=== PATIENT | male | born 1990 | race Caucasian/White ===

== ENCOUNTER 2016-07-31 09:08 | Inpatient (IN) | payer OTHER ==
[~2016-07-31] VITALS: Ht 185.4 cm; Wt 114.8 kg
[~2016-07-31 09:08] MED LIST: IBUP200T48 PO
[2016-07-31 09:15] VITALS: BP 151/91; PULSE 108; RESP 16; O2SAT 100
--- NOTE | 2016-07-31 10:23 | ED.REPORT ---
HPI-Extremity Problem Upper Date of Service July 31, 2016 ED Provider: Asher Mayes MD Pt is a 26 y.o. male who presents to the ED c/o redness and pain to his left elbow onset yesterday. Pt reports associated swelling, pain, decreased ROM, fever (subjective), chills, and nausea. He claims that the pain woke him up several times throughout the night. He denies injury to the area. He denies prior surgery to his left elbow. 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 Nursing Notes Stated Complaint: SWOLLEN LEFT ELBOW, PAIN Chief Complaint: Extremity Trauma Nursing Notes Reviewed: Yes Allergies: Coded Allergies: No Known Allergies (Unverified Allergy, Unknown, 07/31/16) Uncoded Allergies: Grass and tree pollen (Allergy, Mild, Itchiness, watery eyes, 07/31/16) Scheduled Ascorbic Acid (Vitamin C) 1,000 Mg Tab.chew 1,000 MG PO BID Bupropion ER (Wellbutrin SR) 150 Mg Tablet.er 150 MG PO BID Cetirizine HCl (24Hour Allergy) 10 Mg Tablet 10 MG PO HS Melatonin (Melatonin) 10 Mg Tablet 10 MG PO HS Scheduled PRN Acetaminophen (Acetaminophen) 500 Mg Tablet 500-1,000 MG PO Q6H PRN PRN For Pain Albuterol HFA (Proair HFA) 8.5 Gm Hfa.aer.ad 2 PUFFS INHALATION Q4H PRN PRN For Shortness of Breath Ibuprofen (Ibuprofen) 200 Mg Capsule 200-400 MG PO BID PRN PRN For Pain General Time Seen by MD: 10:21 Chief Complaint Elbow injury left Hx Obtained From: Patient Arrived By: Walk-in Onset Occurred: Yesterday Symptom Duration: Since onset Location: : Elbow left Quality: Painful Severity: Current: Severe Similar Sx Previous: No Past Medical History Past Medical History Denies Past Surgical History Denies Social History Alcohol Use: "Social" Ambulatory Status Independent Review of Systems Decreased ROM of left elbow Musculoskeletal: Reports: Joint pain (Left elbow), Joint swelling (Left elbow) Skin: Reports Rash (Left elbow) Complete sys rev & neg: except as marked. Physical Exam Initial Vital Signs Vital Signs (First) Date Time Temp Pulse Resp B/P Pulse Ox O2 Delivery O2 Flow Rate FiO2 07/31/16 09:15 37.5 108 16 151/91 100 Room Air Initial VS: Reviewed Head / Eyes: Atraumatic, Normocephalic, PERRL Abdomen / GI: No distention Lower Extremities: Vascular intact, Neuro intact Neurologic: Alert, Oriented, Nonfocal Psychiatric: Mood/affect normal, Behavior normal, Normal thought content General/Constitutional: Awake, Alert, No acute distress, Well appearing, Well developed, Well hydrated, Well nourished, Not toxic appearing Appearance / Presentation: Positive: Obese Respiratory / Chest: Atraumatic, Breath sounds NL, Breath sounds = bilat, No respiratory distress Cardiovascular: Heart rate NL, Regular rhythm, Heart sounds NL, Cap refill not delayed, Peripheral circulation NL Left Elbow: Positive: Erythema present (8x8cm), Swelling olec bursa... (With mild fluctuance), Swelling present..., Tenderness present..., Warmth present, Negative: ROM reduced... No proximal extending erythema or warmth Interpretation & Diagnostics Lab Results Interpretation Result Diagram: 08/01/16 0625 08/01/16 0625 Test 07/31/16 12:05 Neutrophils (%) (Auto) 81.2% (40-74) Lymphocytes (%) (Auto) 9.7% (14-46) Monocytes (%) (Auto) 8.5% (4-12) Eosinophils (%) (Auto) 0.2% (0-5) Basophils (%) (Auto) 0.2% (0-3) Lactic Acid Level 1.4mmol/L (0.4-2.0) Total Bilirubin 0.7mg/dL (0.0-1.2) Direct Bilirubin < 0.2mg/dL (0.0-0.3) Aspartate Amino Transf (AST/SGOT) 26U/L (0-50) Alanine Aminotransferase (ALT/SGPT) 83U/L (0-44) Alkaline Phosphatase 57U/L (25-150) Total Protein 7.1g/dL (6.4-8.4) Albumin 4.0g/dL (3.4-5.0) X-Ray Interpretation Xray Interpretation: IMPRESSION: No acute fractures or dislocations. Dictated by: Constantino Mcclain M.D. on 07/31/2016 at 11:28 Approved by: Constantino Mcclain M.D. on 07/31/2016 at 11:29 Study Performed: PROCEDURE: X-RAY LEFT ELBOW COMPLETE, MINIMUM THREE VIEWS ([id number]) X-Ray Ordered: Elbow left Procedures PROCEDURE: Left olecranon bursitis @1201 Informed consent provided Consent from patient Time-out performed Hand hygiene observed Stand sterile technique Area cleansed with chlorhexidine 17g needle - Lidocaine 1% 1.5 inch 18g inserted into left olecranon bursa. 1-2ml of slightly cloudy yellowish fluid obtained. Will send to lab, may not be enough to run tests Patient tolerated procedure well, no complications. Re-Eval/Medical Decision Med Decision/Clinical Course Pt is a 26 y.o. male who presents to the ED c/o redness and pain to his left elbow onset yesterday. Pt reports associated swelling, pain, decreased ROM, fever (subjective), chills, and nausea. He claims that the pain woke him up several times throughout the night. He denies injury to the area. He denies prior surgery to his left elbow. 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 Here in the emergency department the patient is febrile with otherwise stable vital signs and nontoxic in appearance. He has palpable left-sided olecranon bursitis with market overlying erythema and warmth. Given concerns for overlying cellulitis I discussed with orthopedic surgery Dr. Farrar who recommended aspiration of the olecranon bursa despite overlying erythema/possible cellulitis due to concern for septic arthritis. The procedure was performed as documented above though only a small amount of fluid was obtained. Laboratory analysis of this fluid revealed a normal Gram stain and no crystals were present. There was not enough fluid for cell count or culture. The patient was treated with Toradol, IV fluids and blood cultures were obtained. Laboratory study revealed leukocytosis and a normal metabolic panel with elevated ESR and CRP. My initial plan was for outpatient management however patient remained febrile and developed right naris. Therefore, he was admitted to the medicine service and consultation with orthopedic surgery. Per my discussion with Dr. Farrar he was started on IV Ancef though he may need to have these antibiotics further broadened. He was transferred in stable condition. Re-Evaluation/Progress : Time of Eval: 13:47 Re-Evaluation/Progress Note: Pt rechecked. Pt's fever in not reducible. Discussed need for admit and IV abx. Pt understands and agrees with plan. Consultation #1: Referral / Consult Name: Rajesh Farrar MD Consulted With: Orthopedic Call Returned at: 11:40 Note: Consulted with Dr. Farrar regarding pt, they recommend the bursa is tapped. 2g Rocephin in ED and discharge on Bactrim and Keflex Consultation #2: Referral / Consult Name: Jed Turcios MD Consulted With: Hospitalist Call Returned at: 14:40 Christian Education Director: Accepts admit Note: Discussed pt condition and consult with Dr. Farrar, accepts admit. Discharge & Departure Impression: Primary Impression: Septic bursitis of elbow Laterality: left Qualified Code: M71.122 - Other infective bursitis, left elbow Additional Impressions: Left elbow pain Cellulitis Site of cellulitis: extremity Site of cellulitis of extremity: upper extremity Laterality: left Qualified Code: L03.114 - Cellulitis of left upper limb Fever and chills Leukocytosis Leukocytosis type: unspecified Qualified Code: D72.829 - Elevated white blood cell count, unspecified Disposition: ADMITTED TO HOSPITAL Discharge Condition All VS Reviewed: Yes Condition: Improved Additional Instructions: Thank you for seeking care at the emergency room. It is difficult for us to make definitive diagnoses in the ED but we believe that you are experiencing an infected olecranon bursa. Our primary goal today in the ED was to evaluate you for any life-threatening conditions. Your evaluation was reassuring. You will be discharged with a prescription for antibiotics and pain medications , please take as directed. Please call first thing next week to follow-up with the orthopedic surgeons. Please elevate your arm and use Damaso bandage as directed. You should return to the ED immediately if you develop increasing swelling, redness, warmth, pain,* fevers, vomiting, cough, shortness of breath, chest pain , lightheadedness, weakness or any other concerning signs or symptoms. Thank you for letting us partake in your care today. You have been prescribed a narcotic for pain relief. These drugs are usually combined with acetaminophen (Tylenol#3, Percocet, Darvocet, Anexsia, Vicodin) or aspirin (Empirin#3, Percodan, Synalogs-DC) for increased effect. Narcotics act on the central nervous system to reduce pain; they also impair mental alertness and physical abilities. We advise you not to drink alcohol, drive a car, or operate dangerous equipment when you are taking these drugs. You can lessen stomach irritation from your medicine by taking it with meals or a full glass of water. Common side effects of narcotics are: Nausea and vomiting , heartburn, constipation, dizziness, sleepiness, and mood changes. If you have bothersome side effects or symptoms of an allergic reaction (itching, hives, rash), stop taking your medicine and call your doctor or the emergency room right away. Please keep your narcotic medicine well out of the reach of children. Referrals: Eduardo Sharp MD (PCP) Rajesh Farrar MD Attestation Portions of this note were transcribed by Lucille Mena. IDr. Mayes personally performed the history, physical exam and medical decision-making; I reviewed and confirmed the accuracy of the information in the transcribed note. Signed by: Shiva Dixon, 07/31/16 and 1441. copies to: Eduardo Sharp MD; Rajesh Farrar MD, Beck O MD July 31, 2016 10:23 LUCILLE MENA July 31, 2016 11:31 Rajesh Farrar MD Attestation Portions of this note were transcribed by Lucille Mena. Dr. Gerber Alegre personally performed the history, physical exam and medical decision-making; I reviewed and confirmed the accuracy of the information in the transcribed note. Signed by: Shiva Dixon, 07/31/16 and 1441. copies to: Eduardo Sharp MD; Rajesh Farrar MD, Beck O MD July 31, 2016 10:23 LUCILLE MENA July 31, 2016 11:31
--- NOTE | 2016-07-31 11:30 | DRSVH ---
PROCEDURE: X-RAY LEFT ELBOW COMPLETE, MINIMUM THREE VIEWS ([id number]) INDICATIONS: swelling and pain TECHNIQUE: 3 views of the elbow were acquired. COMPARISON: None. FINDINGS: Bones: No fractures or dislocations. No suspicious bony lesions. Soft tissues: No elbow joint effusion. No suspicious soft tissue calcifications. IMPRESSION: No acute fractures or dislocations. Dictated by: Constantino Mcclain M.D. on 07/31/2016 at 11:28 Approved by: Constantino Mcclain M.D. on 07/31/2016 at 11:29
[2016-07-31] MEDS ORDERED: cefTRIAXone Inj 2,000 MG in Dextrose 5% Minibag Plus 50 ML IV ONE (11:50)
[2016-07-31] MEDS ORDERED: SULF1TAB7 PO (11:53)
[2016-07-31] MEDS ORDERED: HYDR-4003 PO (11:53)
[2016-07-31] MEDS ORDERED: CEPH-512 PO (11:53)
[2016-07-31 12:25] LABS: BASOPHILS % (AUTO) 0.2 % (0-3); EOSINOPHILS % (AUTO) 0.2 % (0-5); MONOCYTES % (AUTO) 8.5 % (4-12); Mean Corpuscular Hemoglobin 31.5 pg (27.0-35.0); Mean Corpuscular Volume 91.9 fL (81-100); NEUTROPHILS % (AUTO) 81.2 % (40-74); Platelet Count 239 bil/L (150-400)
[2016-07-31] MEDS ORDERED: Ketorolac 15 mg/mL Inj IVPUSH ONE (12:40)
[2016-07-31] MEDS ORDERED: 0.9% Sodium Chloride 1,000 ML IV ONE (12:40)
[2016-07-31 13:23] LABS: ERYTHROCYTE SEDIMENTATION RATE 8 mm/hr (0-15)
[2016-07-31 13:44] VITALS: BP 115/58; PULSE 106; O2SAT 96
[2016-07-31] MEDS ORDERED: Alum-Mag Hydrox-Simeth 30 mL Suspension PO PRN ×2 (13:45→14:50)
[2016-07-31] MEDS ORDERED: Ondansetron 2 mg/mL 2 mL Inj IVPUSH PRN (13:45)
[2016-07-31] MEDS ORDERED: ASCO100089 PO (13:54)
[2016-07-31] MEDS ORDERED: MELA10TA2 PO (13:54)
[2016-07-31] MEDS ORDERED: FEXO180T85 PO (13:54)
[2016-07-31] MEDS ORDERED: ACET-171 PO (13:54)
[2016-07-31] MEDS ORDERED: BUPR150T8 PO (13:54)
[2016-07-31] MEDS ORDERED: ALBU8.5H2 INHALATION (13:55)
[2016-07-31] MEDS ORDERED: IBUP200C PO (13:59)
[2016-07-31] MEDS ORDERED: CETI-343 PO (14:38)
--- NOTE | 2016-07-31 14:46 | PCM.HPMED ---
Subjective Date of Service July 31, 2016 Primary Provider: Admitting Physician: Primary Care Physician: Eduardo Sharp MD Attending Physician: Chief Complaint: Left elbow pain History of Present Illness: Patient is a 26-year-old male with past medical history of Asthma came to the hospital complaining of left elbow pain, 6 out of 10, sharp, nonradiating, started yesterday, partially alleviated by pain medications, exacerbated by movements and palpitation, associated with swelling and decreased motion, fever , chills, nausea. Patient was diagnosed with septic left olecranon bursitis. ED physician asked medicine to admit the patient to the hospital for IV fluids, IV antibiotics, pain management. In emergency department patient received IV ceftriaxone, IV fluids. He has leukocytosis and fever and tachycardia. Review of Systems: REVIEW OF SYSTEMS: GENERAL: No weight loss, + malaise, + fevers., SEE HPI HEENT: Negative for frequent or significant headaches, No changes in hearing or vision, no nose bleeds or other nasal problems NECK: Negative for lumps, goiter, pain and significant neck swelling RESPIRATORY: Negative for cough, wheezing or shortness of breath. CARDIOVASCULAR: Negative for chest pain, leg swelling or palpitations. GI: Negative for abdominal discomfort, blood in stools or black stools or change in bowel habits : No history of dysuria, frequency or incontinence. SKIN: Negative for lesions, rash, and itching. NEURO: No history of headaches, syncope, paralysis, seizures or tremors All other reviewed and negative other than HPI. Allergies Coded Allergies: No Known Allergies (Unverified Allergy, Unknown, 07/31/16) Uncoded Allergies: Grass and tree pollen (Allergy, Mild, Itchiness, watery eyes, 07/31/16) PMH Asthma Surgical History none Social History Hx Alcohol Use: Yes ("occasionally") Hx Substance Use: No Exam Vital Signs Vital Sign - Last Date Time Temp Pulse Resp B/P Pulse Ox O2 Delivery O2 Flow Rate FiO2 07/31/16 13:44 38.3 106 115/58 96 Room Air 07/31/16 09:15 16 Exam PHYSICAL EXAM: GENERAL: Alert, not in distress, cooperative HEAD: atraumatic, normocephalic, no bruises. EYES: CLAIRE, EOMI, anicteric, able to fully open and close eyelids SKIN: Skin color normal, turgor normal/decreased. No visible rashes or lesions. EAR, NOSE, MOUTH, THROAT: Lips, oral mucosa, tongue gums, oropharynx are moist , pink, no lesions. Ears normal appearance, no lesions. NECK: no jugulovenous distention, no carotid bruits, carotid pulse normal contour, No carotid bruit, supple, no enlarged lymph nodes appreciated; ROM normal. RESPIRATORY: Lungs clear to auscultation. Good diaphragmatic excursion. Normal percussion sound. CARDIAC: normal S1 and S2; no rubs, murmurs, or gallops; regular rate and rhythm ABDOMEN: Abdomen soft, non-tender. BS normal. No masses or organomegaly. MUSCULOSKELETAL: Erythema and edema around left olecranon bursa, ROM in the left elbow is limited, muscles are not tender EXTREMITIES: No pitting edema in LE, no deformities, clubbing or skin discoloration. NEURO: Alert, oriented X 3, Sensation grossly intact., Cranial nerves II-XII intact, Grossly normal motor function. PULSES: 2+ radial, 2+ carotid Lab and Diagnostics Result Diagram: 07/31/16 1205 07/31/16 1205 X-Rays, CTs and MRIs X-ray of left elbow IMPRESSION: No acute fractures or dislocations. Assessment & Plan Patient is a 26-year-old male with no significant past medical history. Patient came to the hospital complaining of left elbow pain, 6 out of 10, sharp , nonradiating, started yesterday, partially alleviated by pain medications, exacerbated by movements and palpitation, associated with swelling and decreased motion, fever, chills, nausea. Patient was diagnosed with septic left olecranon bursitis. It was aspirated in ED. She was started on IV and ceftriaxone and IV fluids. Sepsis, acute olecranon bursitis - Stable, not under control - Left elbow x-ray - personally reviewed- no fractures identified Plan - Continue with IV ceftriaxone, add IV Vancomycin - Low up blood cultures, aspirate culture - Continue with IV fluids Jed Turcios MD July 31, 2016 14:45
[2016-07-31] MEDS ORDERED: Polyethylene Glycol (PEG) 17 Gm Powder PO PRN (14:50)
[2016-07-31] MEDS ORDERED: Albuterol HFA 60 Puff 8 Gm Inhaler INHALATION PRN (15:30)
[2016-07-31] MEDS: buPROPion SR 150 mg ER12 Tablet PO SCH ×2 (15:30→22:38)
--- NOTE | 2016-07-31 15:30 | NUR ---
Admit Pt admitted to floor. A&Ox3. Pt able to stand and walk. Limited ROM in left arm due to pain. Left arm resting on a pillow. Pt on RA. Slightly tachycardic at 110-112. Fever has reduced to 37.4. Hospitalist notified and pt started on IV fluids. Bed locked in low position and call light within reach. Will continue to monitor.
[2016-07-31] MEDS ORDERED: Albuterol 2.5 mg/3 mL Inhalation Solution NEB PRN (15:40)
[2016-07-31 15:42] VITALS: BP 113/67; PULSE 110; RESP 24; O2SAT 97
[2016-07-31] MEDS: 0.9% Sodium Chloride 1,000 ML IV SCH (16:19)
[2016-07-31] MEDS: Vancomycin Dose per Pharmacist XX SCH (17:05)
--- NOTE | 2016-07-31 17:42 | PCM.PHAPRO ---
Progress Date of Service: July 31, 2016 Requesting Provider: Jed Turcios MD Left elbow pain Vancomycin per pharmacy vanco trough 15-20 Trough 08/01 @ 1700 vancomycin 1500mg IV x1 then 1250mg IV q8h Todd Arroyo [facility] July 31, 2016 17:42
[2016-07-31] MEDS: HYDROmorphone 0.5 mg/0.5 mL iSecure Syringe IVPUSH PRN ×2 (17:50→21:53)
[2016-07-31] MEDS ORDERED: Vancomycin Inj 1,500 MG in 0.9% Sodium Chloride 500 ML IV ONE (18:00)
[2016-07-31 18:45] VITALS: BP 121/63; PULSE 116; RESP 24; O2SAT 98
--- NOTE | 2016-07-31 18:45 | NUR ---
Fever Pt reported that he was feeling feverish. Redness/swelling has extended past marked area on left elbow. Pt's temp is 39.3, 114bpm. Other vitals are stable. Hospitalist paged. Pt given APAP, per MD orders. Hospitalist will come see pt. Awaiting further orders.
[2016-07-31 20:00] VITALS: BP 145/71; PULSE 123; RESP 17; O2SAT 100
[2016-07-31 20:18] LABS: Bilirubin, Direct < 0.2 mg/dL (0.0-0.3)
[2016-07-31 20:34] VITALS: PULSE 108
[2016-08-01] VITALS (15 sets, daily range): BP systolic 118–156; BP diastolic 68–98; PULSE 92–110; RESP 12–22; O2SAT 95–98
--- NOTE | 2016-08-01 01:44 | CONS ---
[address] [address] CONSULTATION REPORT PATIENT: ANTONINO HUNT : 1990 MR#: [id number] ADMIT: 07/31/2016 JOB ID: [id number] DATE OF SERVICE: 07/31/2016 CHIEF COMPLAINT: This is a 26-year-old male who developed left elbow olecranon bursa swelling and some associated cellulitis and pain. He denies any particular injury and denies any IV drug use or having been bit by any insects. 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 The patient presented to the emergency department today and was admitted for IV antibiotics. Pain and swelling started yesterday. The patient states his pain is moderate in nature. The emergency department did aspirate the bursa. He had leukocytosis as well as fever and tachycardia. PAST MEDICAL HISTORY: Denies any surgery. Positive for asthma. No known medication allergies. SOCIAL HISTORY: Has good family support. He occasionally drinks. Does not use any drugs. REVIEW OF SYSTEMS: HEENT: No blurring of vision. No decreased hearing. Respiratory: No shortness of breath. Cardiovascular: No chest pain. GI: No nausea, vomiting. : No dysuria. Musculoskeletal: Pain in the left elbow. Neuro: No headache or dizziness. Hematologic: No easy bleeding or bruising. PHYSICAL EXAMINATION: 185 cm, 114 kg, male. Initial temperature was 38.4, and is now 39.3, it is fluctuating, has gone up and down. The patient is tachycardic, pulse of 106-108, respirations 24, blood pressure stable, 121/63, pulse ox of 98. Left elbow has pain and swelling over the olecranon, associated cellulitis around the olecranon bursa. No ascending lymphangitis. The patient had been prepped with the blue ChloraPrep pad with some residual blue tenting of the skin, which is not actually bruising but just from the blue tinted ChloraPrep. The patient is able to move the fingers. Peripheral pulses are full. Motor and sensory testing intact. Has pain with elbow range of motion. DIAGNOSTIC STUDIES: Elbow x-rays: No elbow joint effusion. Some swelling around the bursa. White count 12,900, hematocrit 40.8, hemoglobin 14.0, platelet count 239,000, with 81.2% PMNs. Sodium 135, potassium 4.0, chloride 100, CO2 of 22, BUN 16, creatinine 1.23, random glucose at 1.38. Lactic acid at 1.4. ALT elevated at 83, alk phos 57, AST is 26, total protein 7.1, albumin 4.0. IMPRESSION: Left olecranon septic bursitis. The patient is currently on IV vancomycin. I have contacted Dr. Freedman from Infectious Disease, and he suggested IV vancomycin to be continued until we know if he has any particular organism growing. We will keep the patient n.p.o. after midnight just in case the bursitis worsens rather than improves. If it does worsen, then he would require formal drainage in the operating room, otherwise we will treat him with IV antibiotics. Blood cultures are pending. Gram stain showed no polys and no organisms, and no crystals were seen. Will recheck the patient sometime tomorrow for clinical examination.
[2016-08-01] MEDS: Vancomycin Inj 1,250 MG in 0.9% Sodium Chloride 250 ML IV SCH ×3 (01:52→17:42)
[2016-08-01] MEDS: 0.9% Sodium Chloride 1,000 ML IV SCH ×4 (02:02→17:41)
--- NOTE | 2016-08-01 05:20 | PCM.PNMED ---
Subjective Date of Service August 01, 2016 Subjective This is a 26 yo male with elbow bursttiis. On Ceftriaxone and Vancomycin. Orthopedics has him nothing by mouth for possible I&D today. He says his pain as well as range of motion have significantly improved . He recalls having fevers/chills overnight. Denies current nausea, headache Exam Vital Signs Vital Sign - Last Date Time Temp Pulse Resp B/P Pulse Ox O2 Delivery O2 Flow Rate FiO2 08/01/16 02:07 37.2 07/31/16 20:34 108 07/31/16 20:00 17 145/71 100 Room Air Intake and Output 07/31/16 07/31/16 08/01/16 Cumulative From/Thru 15:00 23:00 07:00 07/31/16 09:15 - 07/31/16 18:00 Intake Total 1050 ml 557 ml 1607 ml Output Total 1200 ml 1200 ml Balance 1050 ml -643 ml 407 ml Intake Oral 360 ml 360 ml IV Total 1050 ml 197 ml 1247 ml Output Urine Total 1200 ml 1200 ml Exam General: No accute distress HEENT: NCAT Heart: RRR, no s3/s4 Lungs: CTA, no crackles or wheezes Skin: Left elbow looks purple in the olecranon process, light , faded pink discoloration around it. MSK: Pt is able to move the arm around w/o pain. Neuro: No focal deficits, no altered sensation or numbness, tingling in affected arm Psych:Neg for anxiety Ext: Neg for edema IVs and Medications IV Fluids Normal saline 125 mL per hour Medications Reviewed: Medications were reviewed in detail Lab and Diagnostics Laboratory Tests Test 07/31/16 19:30 08/01/16 06:25 Hold Bishop Top Tube Received (Received) White Blood Count 12.5th/mm3 (3.8-10.1) Red Blood Count 4.19mil/mm3 (4.40-5.80) Hemoglobin 13.2g/dL (13.8-17.2) Hematocrit 39.2% (41.0-50.0) Mean Corpuscular Volume 93.6fL (81-100) Mean Corpuscular Hemoglobin 31.5pg (27.0-35.0) Mean Corpuscular Hemoglobin Concent 33.7% (32.0-37.0) Red Cell Distribution Width 13.1% (12.3-15.4) Platelet Count 218bil/L (150-400) Erythrocyte Sedimentation Rate 31mm/hr (0-15) Sodium Level 141mEq/L (134-144) Potassium Level 4.1mEq/L (3.5-5.2) Chloride Level 107mEq/L (97-108) Carbon Dioxide Level 21mmol/L (18-29) Blood Urea Nitrogen 10mg/dL (6-20) Creatinine 1.05mg/dL (0.76-1.27) Estimat Glomerular Filtration Rate 91mL/min (>59) Glucose Level 120mg/dL (60-99) Calcium Level 8.4mg/dL (8.5-10.1) C-Reactive Protein 11.9mg/dL (0.0-0.5) Microbiology 07/31/16 Blood Culture, Received Pending 07/31/16 Gram Stain - Final, Complete 07/31/16 Fluid Crystals - Final, Complete 08/01/16 MRSA (PCR) - Final, Complete Result Diagram: 07/31/16 1205 07/31/16 1205 X-Rays, CTs and MRIs X-ray of left elbow IMPRESSION: No acute fractures or dislocations. Assessment & Plan Patient is a 26-year-old male with no significant past medical history. Patient came to the hospital complaining of left elbow pain, 6 out of 10, sharp , nonradiating, started yesterday, partially alleviated by pain medications, exacerbated by movements and palpitation, associated with swelling and decreased motion, fever, chills, nausea. Patient was diagnosed with septic left olecranon bursitis. It was aspirated in ED. She was started on IV and ceftriaxone and IV fluids. Sepsis secondary to olecranon bursitis, present on admission: Left elbow x-ray - personally reviewed- revealed no fractures identified - Continue with IV ceftriaxone, IV Vancomycin - blood cultures are NGTD, aspirate culture showed no crystals - Continue with IV fluids, pt is npo for possible I&D -- Called and reviewed case with Dr. Rajesh Elliott and she plans to visit with him today prior to deciding whether to do the I&D are not, he will be Nothing by mouth until she decides -- changed pain meds to morphine IV, oxycodone by mouth from dilaudid IV -- reviewed lab work on 08/01 am, positive leukocytosis and elevated ESR (31), CRP (11.9) -- Dr. Freedman was contacted by Dr. Farrar. He recommends continuing vanc until cultures clear. -- We will consider formal ID consult and Dr. Freedman returns to the hospital Fevers: Patient reports Overnight fevers -- We will continue to monitor, although is aware -- We will order further blood cultures if that is enough concern Nausea: Resolved Allergies: continue home meds Insomnia: continue home meds Asthma: stable Disposition: Discharge to home in 2 days if his infection continues to resolve/ improve. Pain Evaluation: Adequate Pain Control VTE Prophylaxis: Other (Pt is ambulatory) Time spent 25 min Lesly Meeks DO August 01, 2016 05:20
--- NOTE | 2016-08-01 05:59 | NUR ---
Vitals Assumed pt care at 1900,at 2000, pt febrile at 39.2, tachy at 123, Bp at 145/71 stat blood cultures done, results pending, spoke with Dr. Martinez with order for one time Motrin, given, placed pt on white sugar syrup operator, sinus tachy low 100's throughout night, at 2040 temp down to 37.7, at 2100 Dr. Farrar rounding at bedside, with order for MRSA swab, sent to lab, results pending, cleaned left elbow with chloraprep, dressed with 2x2 gauze and secured with kerlix per Dr. Farrar, site has no drainage throughout night, at 0200 pt afebrile at 37.2, at 0545, low grade temp noted at 37.5, given APAP,awaiting results, call light in reach at all times.
[2016-08-01 06:34] LABS: Mean Corpuscular Hemoglobin 31.5 pg (27.0-35.0); Mean Corpuscular Volume 93.6 fL (81-100)
[2016-08-01] MEDS ORDERED: fentaNYL-PF 50 mCg/mL 2 mL Inj ONE (06:39)
[2016-08-01] MEDS ORDERED: Propofol 10,000 mCg/mL 20 mL Inj ONE ×2 (06:39→06:42)
[2016-08-01] MEDS: buPROPion SR 150 mg ER12 Tablet PO SCH ×2 (09:19→20:30)
[2016-08-01] MEDS: cefTRIAXone Inj 2,000 MG in Dextrose 5% Minibag Plus 50 ML IV SCH (09:43)
[2016-08-01] MEDS: Vancomycin Dose per Pharmacist XX SCH (09:59)
--- NOTE | 2016-08-01 14:25 | NUR ---
SURGERY PLAN/PAIN/ANTIBIOTICS P-Patient has apparent infection left elbow, states "pain is we// controlled" and receiving antibiotics for infection I- IV antibiotics given per orders, MSRA nasal swab negative, Oxycodone given to control pain, consent printed and awaiting MD to fill out and explain to patient. Patient running slight temp of 37.8 at 1230, HR 104. E- Planned I & D this afternoon, Dr Farrar. Patient remain NPO, denies pain at this time. Monitoring I/O, VSS, blood cultures pending. Addendum: 08/01/16 at 1826 by MONE ESPARZA RN MXRB-H-Ekiqjagx 11.9, WBC 12.5, temp 37.4 and 37.8 NEURO-LOCX4, independent to bathroom CVS-SR tachy 90-110 through shift denies chest pain. PLUM-RA, slight shortness of breath with activity -NPO since midnight, hyperactive BT GI-4000ml output! SKIN- Left elbow edema, redness and tender. Damaso wrap over 4x4 and curlex + Ice at times. PAIN- Oxycodone 5mg (x1)for left elbow pain IV-NS 125 + Antibiotics PLAN-I&D of elbow today continue antibiotics.
--- NOTE | 2016-08-01 14:28 | NUR ---
Social Work-screening: Data:EMR Reviewed. Pt is a 26 y/o male who was admitted on 07/31/16 for cellulitis per H&P. Pt's insurance is [employer] and [employer] and PCP is Eduardo Sharp Md. EMR reviewed.Pt's readmission score is 0. SW met with pt and Alicia at bedside, SW role explained. Pt is alert and oriented x3. Pt resides at home with his where he remains independent with ADLs. Pt has no HH or SNF history. SW discussed DPOA/ advanced directive, pt has not completed this, SW provided copy of the forms. Pt and have questions around billing and insurance notification,etc. has called insurance and SW explained that hospital also notifies insurance that pt has been admitted. All questions answered. SW provided phone number and plan on white board in room. to provide transport home at discharge. No anticipated discharge needs. SW will continue to follow if needs arise. Assessment:Pt who is independent at baseline. Plan:Pt to discharge home when medically stable via POV. No anticipated discharge needs. SW will continue to follow if needs arise. ALTA Ziegler
[2016-08-01] MEDS ORDERED: Vancomycin Serum Trough XX ONE (17:00)
--- NOTE | 2016-08-01 19:27 | NUR ---
Pt off floor Pt picked up by Kim PAIGE to head to surgery at 1922, Tamica followed to waiting area. Pt able to ambulate with steady gait, SBA by RN to hold fluids. Informed RN that consent will still need to be signed and pt and have questions that need to be answered by Dr. Farrar prior to consent and surgery. would like to stay in room with patient tonight, security informed and brought bed.
[2016-08-01] MEDS ORDERED: Labetalol 5 mg/mL 4 mL Inj IV PRN (20:00)
[2016-08-01] MEDS ORDERED: Phenylephrine 10,000 mCg/mL Inj IVPUSH PRN (20:00)
[2016-08-01] MEDS ORDERED: MetoCLOpramide 5 mg/mL 2 mL Inj IVPUSH PRN (20:00)
[2016-08-01] MEDS ORDERED: Lactated Ringer's 500 ML IV PRN (20:00)
[2016-08-01] MEDS ORDERED: EPHEDrine Sulfate 50 mg/mL Inj IVPUSH PRN (20:00)
[2016-08-01] MEDS ORDERED: Lactated Ringer's 1,000 ML IV SCH (20:00)
[2016-08-01] MEDS ORDERED: Atropine 0.4 mg/mL Inj IVPUSH PRN (20:00)
[2016-08-01] MEDS ORDERED: Ondansetron 2 mg/mL 2 mL Inj IVPUSH PRN (20:00)
--- NOTE | 2016-08-01 20:00 | PCM.HPANE ---
Patient Data Surgeon Admitting Provider:Jed Turcios MD Attending Provider:Rajesh Farrar MD Primary Care Physician:Eduardo Sharp MD Other Provider: Reason for Visit Cellulitis,Bursitis Ht/WT & BMI Height (Feet): 6 Height (Inches): 1.00 Weight (Kilograms): 114.800 Body Mass Index 33.54 Allergies Coded Allergies: No Known Allergies (Unverified Allergy, Unknown, 07/31/16) Uncoded Allergies: Grass and tree pollen (Allergy, Mild, Itchiness, watery eyes, 07/31/16) Past Anesthesia History Anesthesia History: Denies:: Anesthesia Reactions Diabetes History Hx Diabetes?: No MRSA MRSA: No Medications Reported Medications Cetirizine HCl (24Hour Allergy)10 Mg Uovvtg70 Mg PO HS 07/31/16 Ibuprofen 200 Mg Tndedhd414-199 Mg PO BID PRN For Pain 07/31/16 Albuterol HFA (Proair HFA)8.5 Gm Hfa.aer.ad2 Puffs INHALATION Q4H PRN For Shortness of Breath #1 INHALER 07/31/16 Acetaminophen 500 Mg Peizlu064-0,000 Mg PO Q6H PRN For Pain 07/31/16 Ascorbic Acid (Vitamin C)1,000 Mg Tab.chew1,000 Mg PO BID Ref 0 07/31/16 Bupropion ER (Wellbutrin SR)150 Mg Tablet.er150 Mg PO BID Ref 0 07/31/16 Melatonin 10 Mg Wisagb80 Mg PO HS 07/31/16 Discontinued Reported Medications Fexofenadine (Rosie Allergy)180 Mg Ciztxu417 Mg PO HS Ref 0 07/31/16 IBUPROFEN-Expunged Drug, Do Not Renew! 200 Mg Qtmuep364-928 Mg PO Q6H PRN For Pain 09/06/12 Discontinued Scripts Cephalexin (Keflex)500 Mg Xhzkyuv689 Mg PO QID 7 Days Prov:Asher Mayes MD 07/31/16 Sulfamethoxazole/Trimeth 800-160 mg (Bactrim DS)1 Each Tablet1 Tablet PO BID 7 Days Prov:Asher Mayes MD 07/31/16 Hydrocodone-Acetaminophen 5-325 mg 1 Each Tablet1 Tablet PO Q4H PRN For Pain 3 Days Prov:Asher Mayes MD 07/31/16 History History of ENT Problems?: Yes HEENT History: Positive for:: Sinus Problem Denies:: Cataracts Dysphagia Glaucoma Denture Type: None Teeth Condition: Within Normal Limits Hx of Heart Problems?: Yes Cardiovascular History: Positive for:: Hypertension (Not on medications. Diet controlled.) Denies:: Cardiac Surgery Chest Pain Congestive Heart Failure Heart Murmur Irregular Heartbeat Pacemaker Thrombophlebitis Hx of Respiratory Problem?: Yes Respiratory History: Positive for:: Asthma Dyspnea Denies:: COPD Chest Surgery Emphysema Hemoptysis Pneumonia Tuberculosis Hx Neurologic Problems?: Yes Neurological History: Positive for:: Dizziness Headaches Denies:: Alzheimer's Disease CVA Dementia Parkinson's Disease Seizures Hx of GI Problems?: No Hx of Problems?: No Genitourinary History: Denies:: HX of Hemodialysis Kidney Stones Urinary Tract Infection HX of Peritoneal Dialysis: No Male Hx: Denies:: Prostate Problems Scrotal Mass Testicular Surgery Hx Musculoskeletal Problems?: No Musculoskeletal History: Denies:: Back Injury Joint Replacement Musculoskeletal Trauma Hx of Psycho/Social Problems?: Yes Psycho Social History: Positive for:: Anxiety (Wellbutrin) Hx Depression Denies:: Bipolar Disorder Suicide Attempt Hx Surgeries?: Yes ([place] teeth extraction) Hx Any Other Health Problems?: Yes Other History: Denies:: Cancer Hospitalization Thyroid Disease History Blood Transfusions: Positive for:: Accept Blood Products? Denies:: Blood Transfuse Reaction Blood Transfusions Hx Diabetes: No Hx Alcohol Use: Yes (Social)Hx Substance Use: No Smoking Status: Never Smoker Have You Smoked inLast 12 mo: No Stop/Bang Treated for Sleep Apnea?: No Do You Have a CPAP Machine?: No S-Snoring: Do You Snore Loudly: Yes T-Tired: feel tired, fatigued: No O-Obsered: Observed not breath: No P-Blood Pressure: treated: No B- Body Mass Index > 35 kg/m2: No A- Age over 50: No N- Neck Large Circumference: No G- Gender Male: Yes CHRISTINA Total Score: 2 Risk Assessment Category Category 1A: Patient has history of documented sleep apnea, and HAS NOT received any narcotic, sedative or anesthesia administration during this stay. Category 1B: Patient has history of documented sleep apnea, and HAS received any narcotic , sedative or anesthesia administration during this stay Category 2: Patient has SUSPECTED Obstructive Sleep Apnea, and HAS received any narcotic , sedative or anesthesia administration during this stay. Category 3: Patient has SUSPECTED Obstructive Sleep Apnea and HAS NOT received narcotic, sedative or anesthesia administration during this stay. Category 4: Outpatient in Procedural Areas with known sleep apnea or who screen positive for High Risk via the STOP/BANG questionnaire. Exam Exam Vital Signs Vital Signs Date Time Temp Pulse Resp B/P Pulse Ox O2 Delivery O2 Flow Rate FiO2 08/01/16 16:31 38.1 110 18 133/77 95 Room Air 08/01/16 15:33 38.6 08/01/16 12:50 37.8 104 16 134/84 95 Room Air General Appearance: Alert, Oriented X3 HEENT/AIRWAY: MP 1, Neck Movement (FROM) Lungs: Clear to Auscultation, Clear to Percussion Heart: Exam Unremarkable, Regular Rate/Rhythm Meds/Labs/Diagnostics Admission Meds Current Medications Melatonin 10 mg 10 mg HS PO Last administered on 07/31/16 21:51; Start at 21:00 Ceftriaxone Sodium 2000 mg/ Dextrose/Water 50 ml @ 100 mls/hr Q24H IV Last administered on 08/01/16 09:43; Start 08/01/16 at 09:00 Vancomycin HCl 1500 mg/Sodium Chloride 500 ml @ 333.333 mls/hr OT ONCE IV Last administered on 07/31/16 17:54; Start 07/31/16 at 18:00; Stop 07/31/16 at 19:29; Status DC Vancomycin HCl/ Sodium Chloride (Vancocin Inj/ Normal Saline) 250 ml @ 166.667 mls/hr Q8H IV Last administered on 08/01/16 09:59; Start 08/01/16 at 02:00 Ibuprofen (Motrin) 600 mg ONCE ONCE PO Last administered on 07/31/16 20:26; Start 07/31/16 at 20:05; Stop 07/31/16 at 20:06; Status DC Loratadine (Claritin) 10 mg HS PO Last administered on 07/31/16 21:52; Start 07/31/16 at 21:00 Labs Test 07/31/16 12:05 07/31/16 19:30 08/01/16 06:25 08/01/16 16:12 Neutrophils (%) (Auto) 81.2% (40-74) Lymphocytes (%) (Auto) 9.7% (14-46) Monocytes (%) (Auto) 8.5% (4-12) Eosinophils (%) (Auto) 0.2% (0-5) Basophils (%) (Auto) 0.2% (0-3) Lactic Acid Level 1.4mmol/L (0.4-2.0) Total Bilirubin 0.7mg/dL (0.0-1.2) Direct Bilirubin < 0.2mg/dL (0.0-0.3) Aspartate Amino Transf (AST/SGOT) 26U/L (0-50) Alanine Aminotransferase (ALT/SGPT) 83U/L (0-44) Alkaline Phosphatase 57U/L (25-150) Total Protein 7.1g/dL (6.4-8.4) Albumin 4.0g/dL (3.4-5.0) Hold Bishop Top Tube Received (Received) White Blood Count 12.5th/mm3 (3.8-10.1) Red Blood Count 4.19mil/mm3 (4.40-5.80) Hemoglobin 13.2g/dL (13.8-17.2) Hematocrit 39.2% (41.0-50.0) Mean Corpuscular Volume 93.6fL (81-100) Mean Corpuscular Hemoglobin 31.5pg (27.0-35.0) Mean Corpuscular Hemoglobin Concent 33.7% (32.0-37.0) Red Cell Distribution Width 13.1% (12.3-15.4) Platelet Count 218bil/L (150-400) Erythrocyte Sedimentation Rate 31mm/hr (0-15) Sodium Level 141mEq/L (134-144) Potassium Level 4.1mEq/L (3.5-5.2) Chloride Level 107mEq/L (97-108) Carbon Dioxide Level 21mmol/L (18-29) Blood Urea Nitrogen 10mg/dL (6-20) Creatinine 1.05mg/dL (0.76-1.27) Estimat Glomerular Filtration Rate 91mL/min (>59) Glucose Level 120mg/dL (60-99) Calcium Level 8.4mg/dL (8.5-10.1) C-Reactive Protein 11.9mg/dL (0.0-0.5) Vancomycin Level Trough 12.3mcg/mL Plan Impression Patient chart reviewed, patient interviewed and anesthestic plan with risks, benefits, and alternatives discussed, and informed consent obtained. ASA Physical Status: ASA2 Mod Systemic Disease Anesthetic Plan: MAC (with GA as backup) Bene/Risks/Altern/Consents: Yes HP Complete Prior to Induction: Yes Navin Merchant MD August 01, 2016 17:39
[2016-08-01] MEDS ORDERED: Bupivacaine-MPF 0.5% 30 mL Inj INFILTRATE ONE (20:07)
[2016-08-01] MEDS ORDERED: Gentamicin 40 mg/mL 2 mL Inj IRRIGATION ONE (20:08)
--- NOTE | 2016-08-01 20:38 | PCM.ANEP1 ---
Post Anesthesia PACU Phase 1 Assessment Vital Signs Vital Signs Date Time Temp Pulse Resp B/P Pulse Ox O2 Delivery O2 Flow Rate FiO2 08/01/16 20:00 104 08/01/16 16:31 38.1 110 18 133/77 95 Room Air 08/01/16 15:33 38.6 08/01/16 12:50 37.8 104 16 134/84 95 Room Air Anesthetic Administered: MAC Level of Alertness: Awake, talking EDMONDSON's with Equal Strength: No Pain: Yes Pain Scale Score: 6 Nausea or Vomiting: No CV Function & Hydration Stable: No Airway Device: None Oxygen Delivery: Room Air Lungs: Clear to Auscultation, Clear to Percussion PACU Phase 2 Assessment Complications: No Follow up Care: No Patient Instructions Provided: N/A Comments See anesth record for PACU VS. PACU VSS Navin Merchant MD August 01, 2016 20:38
[2016-08-01] MEDS: HYDROmorphone 1 mg/mL Inj IVPUSH PRN ×2 (20:46→20:52)
[2016-08-01] MEDS: fentaNYL-PF 50 mCg/mL 2 mL Inj IVPUSH PRN ×2 (21:01→21:18)
--- NOTE | 2016-08-01 21:12 | NUR ---
Return to floor Pt returned from OR at approx. 2111, brought by Arlene PAIGE and snow technician. Pt A&O, 5/ pain changed to 8/10 pain with transfer. Arlene administered last OR dose of pain medication. VSS, 1L NC O2 left on at patients request. Pillows arranged under arm for comfort. Pt requested water and broth, then ate crackers and muffin. No nausea reported. at bedside, bed brought for her.
--- NOTE | 2016-08-01 21:55 | OP ---
[address] [address] OPERATIVE REPORT PATIENT: ANTONINO HUNT : 1990 MR#: [id number] ADMIT: 07/31/2016 JOB ID: [id number] DATE OF SURGERY: PREOPERATIVE DIAGNOSIS(ES): 1. Left elbow cellulitis. 2. Septic olecranon bursitis. POSTOPERATIVE DIAGNOSIS(ES): 1. Left elbow cellulitis. 2. Septic olecranon bursitis. PROCEDURE: 1. Incision and drainage and irrigation of infected left olecranon bursa. 2. Wound packed open with bulky dressing and a splint applied. CPT code 82049. SURGEON: Dr. Rajesh Farrar. FISHER DIP NET: None. ANESTHESIA: IV sedation with IV MAC and local anesthetic. SPECIMEN TO PATHOLOGY: Small amount of aspirated bloody bursal fluid. SPONGE AND NEEDLE COUNT: Correct. COMPLICATIONS: None. INDICATIONS: This is a 26-year-old male with persistent pain, swelling and erythema around the left elbow and olecranon bursa. The patient had a prior olecranon bursa aspirated for just a few drops of fluid and that was originally sent for culture. He continued to have increased cellulitis and erythema expanding beyond the previously marked margins despite being on IV vancomycin. The patient denies any trauma to that elbow. The cellulitis persisted despite being on bed rest and IV antibiotics and arm elevation. Decision was, therefore, made to take him to the operating room today for a small incision, irrigation of the bursa and send additional cultures to Pathology. PROCEDURE IN DETAIL: Under IV MAC sedation with anesthesia, I did prep the left arm and drape it in a sterile fashion. Tourniquet was applied, but it ended up not being utilized. A small amount of Marcaine plain was placed in the proximal portion of the olecranon bursa. Initial needle aspiration did not yield much of any fluid. The olecranon bursa was boggy. Less than 1 cm wound was fashioned proximally in the olecranon bursa and there was some fluid that was removed, was blood-tinged and no evidence of any purulent material. This was sent to Bacteriology for aerobic and anaerobic cultures. Cell count with differential was not performed since the fluid was blood-tinged more like serosanguineous fluid. The bursa was noted to be from the subcutaneous tissue for dimensions of 6 cm in width and 7 cm in length. Utilizing a mosquito hemostat clamp, the bursa was probed proximal, distal, medial and lateral. Any septae in the bursa were released. The wound was thoroughly irrigated with antibiotic solution with gentamicin. It was subsequently packed open. Estimated blood loss was less than 5 mL. This was packed open with 1/4-inch gauze moistened with IV gentamicin solution. Dry, sterile, bulky dressing was applied as well as a fiberglass volar splint. Posterior splint to keep the patient from moving his elbow and decrease irritation around the elbow. The patient was taken to recovery room in stable condition. Sponge and needle count correct. No complications. PLAN: I will plan to remove the patient's packing and change his dressing on Monday, August 03, 2016. Infectious Disease will also be consulted. The patient is aware that there is always the potential he may require additional surgery and that his wound will have to heal in by secondary intention. The wound itself is only about 1 cm or slightly less than 1 cm in length and should heal in by secondary intention.
[2016-08-02] VITALS (7 sets, daily range): BP systolic 112–130; BP diastolic 66–84; PULSE 97–106; RESP 16–18; O2SAT 93–99
[2016-08-02] MEDS: Vancomycin Inj 1,250 MG in 0.9% Sodium Chloride 250 ML IV SCH ×3 (02:01→22:20)
--- NOTE | 2016-08-02 06:05 | NUR ---
IV Upon return from OR, attempted to flush IV on Right forearm infiltrated, red, painful, puffy. Removed IV. 2 attempts by Phillip PAIGE failed. Mary called in to attempt IV, successfully. Then 1 hour later, that IV infiltrated. IV in hand still working and normal saline changed from 125ml/hr to 60ml/hr higher rate was causing discomfort. IV vanco will be run at 60ml/hr rather than 166ml/hr in the hopes that we can keep this IV running. After ambulating to restroom, pt got IV tubing caught on pants and almost completely pulled out IV. This nurse was able to feed it back into the vein and it appears to be running smoothly without any signs of infiltration. Will continue to monitor and called IV therapy attempt to put another IV in further up on arm.
--- NOTE | 2016-08-02 06:08 | NUR ---
Pain Morphine helping only temporarily. This nurse chose to give 1mg q2 for the first 2 doses to help maintain pain control. 0200 pt requested more medication, oxycodone given. Pt felt inflammation in wrapped arm, cap refill and mobility, sensation checked in fingers. 0230 pt requested more medication Tylenol given to allow optimal coverage with morphine and oxycodone timing. Pt continues to report 6-8/10 with any slight movement of arm. Will continue to monitor pain level and coverage.
--- NOTE | 2016-08-02 06:09 | NUR ---
Temp Pt had temperature 38.6 on prior shift per report. No temp during night shift supervisor until 0440 with 37.8 after ambulating to restroom. Tylenol being given due to pain, will continue to administer to help with temp as well.
[2016-08-02 06:33] LABS: Mean Corpuscular Hemoglobin 31.2 pg (27.0-35.0)
--- NOTE | 2016-08-02 07:58 | PCM.PNORTH ---
Subjective Date of Service: August 02, 2016 Visit Information: Reason for Visit Cellulitis,Bursitis Surgery/Surgery Date Post-Op Day # 1 Date of Admission: July 31, 2016 at 14:57 Hospital Day # Subjective Patient states he has been having a lot of pain and they have had difficulty controlling it. Patient states he is on a regiment of Hydrocodone, Morphone and Tylenol (he's actually on oxycodone). He states this regiment has kept his pain level tolerable but states he is still having the pain. I explained to him that he has had surgery and that pain is expected. He states he has been keeping his hand and elbow elevated and that is comfortable for him. He denies numbness, tingling or increasing pain Postop General: No Shortness of Breath, No Chest Pain Pain Management: PO, IV Push Objective Exam Objective Patient laying in bed with elbow and hand elevated. Vital Signs and I/O Vital Sign - Last Date Time Temp Pulse Resp B/P Pulse Ox O2 Delivery O2 Flow Rate FiO2 08/02/16 04:40 37.8 99 18 112/66 93 Nasal Cannula 1.00 Intake and Output 08/01/16 08/01/16 08/02/16 Cumulative From/Thru 15:00 23:00 07:00 07/31/16 09:15 - 08/02/16 06:40 Intake Total 2650 ml 1247 ml 8204 ml Output Total 4000 ml 2400 ml 9700 ml Balance -1350 ml -1153 ml -1496 ml Intake Oral 600 ml 1710 ml IV Total 2650 ml 647 ml 6494 ml Output Urine Total 4000 ml 2400 ml 9700 ml # Voids 5 5 Lab & Micro Results Laboratory Tests Test 08/01/16 16:12 08/02/16 05:11 08/02/16 06:15 Vancomycin Level Trough 12.3mcg/mL White Blood Count 12.2th/mm3 (3.8-10.1) Red Blood Count 4.01mil/mm3 (4.40-5.80) Hemoglobin 12.5g/dL (13.8-17.2) Hematocrit 37.7% (41.0-50.0) Mean Corpuscular Volume 94.0fL (81-100) Mean Corpuscular Hemoglobin 31.2pg (27.0-35.0) Mean Corpuscular Hemoglobin Concent 33.2% (32.0-37.0) Red Cell Distribution Width 13.0% (12.3-15.4) Platelet Count 209bil/L (150-400) Erythrocyte Sedimentation Rate 41mm/hr (0-15) Sodium Level 139mEq/L (134-144) Potassium Level 4.2mEq/L (3.5-5.2) Chloride Level 102mEq/L (97-108) Carbon Dioxide Level 22mmol/L (18-29) Blood Urea Nitrogen 7mg/dL (6-20) Creatinine 1.12mg/dL (0.76-1.27) Estimat Glomerular Filtration Rate 85mL/min (>59) Glucose Level 166mg/dL (60-99) Calcium Level 8.6mg/dL (8.5-10.1) C-Reactive Protein 13.2mg/dL (0.0-0.5) Microbiology 07/31/16 Blood Culture - Preliminary, Resulted NO GROWTH AFTER 24 HOURS 07/31/16 Gram Stain - Final, Complete 07/31/16 Fluid Crystals - Final, Complete 08/01/16 MRSA (PCR) - Final, Complete 08/01/16 Gram Stain, Received Pending 08/01/16 Culture & Sensitivity, Received Pending 08/01/16 Anaerobic Culture, Received Pending Result Diagram: 08/02/16 0511 08/02/16 0615 General Appearance: Alert, Oriented X3, Cooperative, No Acute Distress Extremities: Distal Pulses Palpable, Warm Postop Sensory Motor: Distal Motor Intact, Movement in Fingers (Able to make a full fist, extend fingers and abd/adduct fingers.), Distal Sensation Intact, NVI Distally SURGICAL WOUND : Wound Location/Description Perioperative dressings in place, clean and dry. Incision General Appearance: No Direct Observation Wound Drainage Type: Packing to be removed by Dr. Farrar POD#2 Assessment & Plan Impression POD#1 1. Incision and drainage and irrigation of infected left olecranon bursa. 2. Wound packed open with bulky dressing and a splint applied. Problems: Plan Weightbearing: Patient should remain nonweightbearing with his upper left extremity. Wound care: Dressings shoulder remain intact until POD#[address] Farrar will remove the dressings and the packing and reassess the wound. Analgesia: Oral pain management preferred. Encourage patient that pain is normal and expected. Discharge plan: Discharge home in 1-2 days. Follow-up plan: Dependent on reassessment of wound POD#2. Dr. Farrar may need to do an additional I&D or closure. VTE Prophylaxis: Other (Pt is ambulatory) Christa Olivares PA-C August 02, 2016 07:57
[2016-08-02] MEDS: 0.9% Sodium Chloride 1,000 ML IV SCH ×2 (08:10→16:10)
[2016-08-02] MEDS ORDERED: Ketorolac 15 mg/mL Inj IVPUSH PRN (08:10)
[2016-08-02] MEDS: Vancomycin Dose per Pharmacist XX SCH (08:30)
[2016-08-02] MEDS: buPROPion SR 150 mg ER12 Tablet PO SCH ×2 (08:39→21:13)
[2016-08-02] MEDS: Heparin 5,000 Unit/mL Inj SUBQ SCH ×2 (08:44→17:28)
--- NOTE | 2016-08-02 11:01 | NUR ---
Social Work-readiness for discharge: Data:EMR reviewed. Pt is on day 2 of hospitalization for cellulitis per H&P. Pt is not medically stable anticipate 1-2 more days. Pt is on IV abx at this time, but anticipate pt to transition to oral abx at discharge. Pt has been up independent in his room. Pt's to provide transport home. No anticipated discharge needs. SW will continue to follow if needs arise. Assessment:Pt who is independent at baseline. Plan:Pt to discharge home when medically stable via POV. No anticipated discharge needs. SW will continue to follow if needs arise. ALTA Ziegler
[2016-08-02] MEDS: cefTRIAXone Inj 2,000 MG in Dextrose 5% Minibag Plus 50 ML IV SCH (12:42)
[2016-08-02] MEDS ORDERED: Vancomycin Serum Trough XX ONE ×2 (15:00→17:00)
--- NOTE | 2016-08-02 15:13 | CONS ---
[address] [address] CONSULTATION REPORT PATIENT: ANTONINO HUNT : 1990 MR#: [id number] ADMIT: 07/31/2016 JOB ID: [id number] DATE OF SERVICE: 08/02/2016 INFECTIOUS DISEASE CONSULTATION: I thank Dr. Rajesh Elliott for this consult. REASON FOR CONSULT: Left septic olecranon bursitis. HISTORY OF PRESENT ILLNESS: The patient is a 26-year-old gentleman who reports generally good health. 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 On or about July 30, three days ago, the patient noticed the abrupt onset of warmth, tenderness and swelling and pain around his left elbow. This rapidly progressed and was eventually associated with fevers, chills, nausea, generalized malaise, and generalized dysphoria. These worsening symptoms involving his left elbow led him to the emergency department and he was admitted on July 31. The initial diagnosis was probable septic bursitis given his high fever and leukocytosis and so he underwent a bursal aspiration which yielded only 1 or 2 cc of material which was cloudy and was sent for appropriate cultures and stains. He was then started on ceftriaxone and Dr. Farrar contacted me whilst I was on vacation in [place] and I recommended the addition of vancomycin which was subsequently done. Since that time, the patient has gone to the operating room for a more formal drainage procedure which was done by Dr. Rajesh Farrar once again. She took him to the OR because there was increasing cellulitis and erythema despite IV ceftriaxone and vanco. In the operating room, she found the olecranon bursa was quite boggy. There was no evidence of purulence, however, and the fluid that she did obtain was sent for appropriate cultures though she could not do cell counts because it was so thick. Packing was done and the wound was carefully wrapped in a large postoperative bulky dressing which extends most of the way up and down the patient's entire left arm. The patient reports that since his debriding procedure his pain is, if anything, decreased though it is still obviously quite painful. He has not had additional significant fevers or chills and in general is probably somewhat better today. No headache, nausea, vomiting or pulmonary symptomatology today. No infection in any other body site and no history ever of MRSA or any soft tissue infection. He is not known to be a diabetic nor is he known to have HIV or any immunosuppressive illness. PAST MEDICAL HISTORY: 1. Obesity with BMI 33. 2. Reactive airway disease. 3. Asperger's or autism spectrum disorder. 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 He is and has small children at home. He does not smoke cigarettes and drinks only occasionally. He and his and children reside in the local area and neither his nor is children have had any unusual illnesses. FAMILY HISTORY: Positive for coronary artery disease and diabetes. REVIEW OF SYSTEMS: The patient denies any significant ongoing headache. He has no visual complaints. No sore throat. No trouble swallowing. No cough, chest pain, nausea, vomiting, diarrhea, dysuria, urgency, or frequency. Aside from the pain in his left elbow area, he does not have pain in any other joints and no swelling in his lower extremities. No neurologic complaints. The remainder of the review of systems is negative. PHYSICAL EXAMINATION: Reveals a gentleman who was quite febrile when he came in, was spiking temperatures around 38.5 for the first 36 hours or so. His current temperature is lower at 37.7, pulse 105, respiratory rate 16, blood pressure 129/77. He is saturating well on room air and in no acute distress. Examination of the head reveals no trauma. Mental status is completely normal. Oral cavity negative. No thrush or hairy leukoplakia. Neck is supple and without adenopathy. Lungs are clear. Cardiac tones regular rate and rhythm without murmur. Abdomen somewhat obese, soft, nontender. No organomegaly. No Wu catheter is present. No suprapubic fullness. No palpable lymph nodes. Lower extremities completely benign. No erythema or cellulitis or synovial swelling noted. He has good peripheral pulses. His left arm, as I mentioned, is wrapped in a postop dressing which goes from almost the shoulder to the wrist and the orthopedist has hopefully written on there not to remove the dressing except in the OR as there is a packed wound underneath so we did not mess with it. The patient is neurologically intact without focal abnormalities or neuropathy. LABORATORIES: Include a white count that was 13,000 two days ago. It is now down to 12,000, not much difference. Differential is relatively benign, a little bit of a left shift. ESR 41. CRP rather strikingly elevated at 13.2. Glucose 166 and all his blood sugars have been between 120 and 166. His creatinine 1.12. LFTs notable for an ALT of 83, otherwise normal. Albumin normal. Micro: Blood cultures x2 sets are negative. Synovial fluid negative for crystals. Gram stain showed no polys or organisms. Culture is negative at 2-1/2 days. MRSA screen of the nares is negative. The additional fluid that was taken last night has rare polys and no organism. IMAGING: Includes the initial x-ray which shows no abnormalities of the left elbow. IMPRESSION: This is a 26-year-old gentleman without apparent significant past medical history though he does seem to have some sustained hyperglycemia here. He is admitted with a rather rapidly progressive left septic olecranon bursitis. Unfortunately we do not have a positive culture yet but one still could be forthcoming. This is likely infectious rather than a non infectious olecranon bursitis as the patient had fevers, chills, generalized malaise and leukocytosis. Dr. Farrar thought his overall evaluation was consistent with sepsis, and for that reason, he has been started on aggressive therapy with vanc and ceftriaxone. Most of these turntable engineer to be due to Staph, strep or even occasionally gram negatives can be involved. RECOMMENDATIONS: 1. I continue with vanc and ceftriaxone for the time being. 2. We await the pending cultures. 3. Will check an HIV and we understand that a hemoglobin A1c is already pending looking for any evidence of previously unknown immunosuppression. 4. As the patient improves, will pick an oral home therapy for this infection though linezolid will not be a choice given that he is on Wellbutrin generic for anxiety. Thank you very much for allowing me to see this patient in consult.
--- NOTE | 2016-08-02 16:07 | NUR ---
Social Work Note - Readiness for Discharge: D/A: The Pt is a 26 y/o male that is now on day 2 of hospitalization for cellulitis, as per EMR. SW received call from Pt's regarding insurance and resource concerns and questions. SW met with the Pt and his to discuss these concerns and questions. Pt reported that his insurance [employer] needs to receive a pre-authorization to be admitted but unfortunately the office was closed due to the holiday. Pt informed SW that she had notified [facility] about his admission. Pt and also inquired about any services in the community that may of be some help during his recovery such as [facility], SW explored [facility] services and also encouraged the Pt and to contact the Pt's Human Resource department to see if he is eligible for any type of assistance. SW t/c to [employer] for assistance, informed SW that clinicals have been faxed to [facility]. Pt and updated. also informed SW that she was in contact with [facility] and may be eligible for some services and will seeking additional assistance at their agency. Pt and deny any other needs at this time, SW to follow if needs arise. P: Pt likely to discharge home when medically stable with family providing POV transportation. Pt and deny any other needs at this time, SW to follow if needs arise. [facility] Nurse ALTA Ziegler
--- NOTE | 2016-08-02 19:10 | NUR ---
Pain Pt did much better w/ pain managed on toradol. 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
[2016-08-02] MEDS ORDERED: Vancomycin Inj 1,250 MG in 0.9% Sodium Chloride 250 ML IV SCH (21:35)
--- NOTE | 2016-08-02 21:40 | PCM.PNMED ---
Subjective Date of Service August 02, 2016 Subjective Patient is seen and examined. Asking for better pain control. Morphine 1-2 mg Q4HPRN not lasting enough. He says he has fam hx of DM II. On oxygen 2 L, no other concerns Exam Vital Signs Vital Sign - Last Date Time Temp Pulse Resp B/P Pulse Ox O2 Delivery O2 Flow Rate FiO2 08/02/16 04:40 37.8 99 18 112/66 93 Nasal Cannula 1.00 Intake and Output 08/01/16 08/01/16 08/02/16 Cumulative From/Thru 15:00 23:00 07:00 07/31/16 09:15 - 08/01/16 20:40 Intake Total 2650 ml 6957 ml Output Total 4000 ml 7300 ml Balance -1350 ml -343 ml Intake Oral 1110 ml IV Total 2650 ml 5847 ml Output Urine Total 4000 ml 7300 ml # Voids 5 5 Exam General: NAD HEENT: NCAT Heart: RRR, no s3/s4 Lungs: CTA b/l no crackles or wheezes Abd: Soft, NT/ND Legs: No edema MSK: Left Elbow is wrapped in dressings Skin: Warm and dry Neck: Trachea central Neuro no focal deficits Psych negative for anxiety IVs and Medications Medications Reviewed: Medications were reviewed in detail Lab and Diagnostics Result Diagram: 08/01/1662408/01/16 0625 X-Rays, CTs and MRIs X-ray of left elbow IMPRESSION: No acute fractures or dislocations. Assessment & Plan Patient is a 26-year-old male with no significant past medical history. Patient came to the hospital complaining of left elbow pain, 6 out of 10, sharp , nonradiating, started yesterday, partially alleviated by pain medications, exacerbated by movements and palpitation, associated with swelling and decreased motion, fever, chills, nausea. Patient was diagnosed with septic left olecranon bursitis. It was aspirated in ED. She was started on IV and ceftriaxone and IV fluids. Elevated BG, fasting: -- A1C is ordered this a.m. Sepsis secondary to olecranon bursitis, present on admission: Left elbow x-ray - personally reviewed- revealed no fractures identified - Continue with IV ceftriaxone, IV Vancomycin per ID - blood cultures are NGTD, aspirate culture showed no crystals - Patient is status post IND on 08/01. No culture sent as nothing purulent is found. --Increased pain meds : morphine 4 mg Q3HPRN, oxycodone Q4HPRN 5 mg, ketorolac 30 mg Q6HPRN --Dr. Freedman was contacted by by phone. He recommends continuing vanc and ceftriaxone in his consult note --Enoxaparin SQ for DVT Prophylaxis -- HIV test is ordered by ID: Follow the results Fevers: Patient reports Overnight fevers -- We will continue to monitor, although is aware -- We will order further blood cultures if that is enough concern Nausea: Resolved Allergies: continue home meds Insomnia: continue home meds Asthma: stable Disposition: Discharge to home in 2 days if his infection continues to resolve/ improve. Pain Evaluation: Pain not Controlled VTE Prophylaxis: Sub-Q Heparin (Unfractionated), Other (Pt is ambulatory) Time spent 25 min Lesly Meeks DO August 02, 2016 05:12
[2016-08-03] MEDS: Heparin 5,000 Unit/mL Inj SUBQ SCH ×3 (01:12→17:02)
[2016-08-03 01:40] VITALS: BP 131/85; PULSE 95; RESP 18; O2SAT 95
[2016-08-03] MEDS: Vancomycin Inj 1,250 MG in 0.9% Sodium Chloride 250 ML IV SCH ×3 (05:48→21:33)
[2016-08-03 06:00] VITALS: BP 115/64; PULSE 86; RESP 17; O2SAT 97
[2016-08-03 06:12] LABS: Mean Corpuscular Hemoglobin 31.5 pg (27.0-35.0); Mean Corpuscular Volume 94.2 fL (81-100)
--- NOTE | 2016-08-03 06:29 | NUR ---
Shift note uneventful night pain managed well w/Toradol and prn oxycodone up ind anticipating ortho today
[2016-08-03] MEDS: buPROPion SR 150 mg ER12 Tablet PO SCH ×2 (07:50→21:33)
[2016-08-03] MEDS: Vancomycin Dose per Pharmacist XX SCH (08:10)
--- NOTE | 2016-08-03 08:17 | PCM.PNMED ---
Subjective Date of Service August 03, 2016 Subjective Patient is seen and examined. He is asked not to use the oxygen via NC, as he seems to be using it just for comfort. He is encouraged to ambulate and take deep breaths. Pain is better controlled on toradol. Discussed the A1C finding of 5.7, encouraged life style changes. He has no other concerns Exam Vital Signs Vital Sign - Last Date Time Temp Pulse Resp B/P Pulse Ox O2 Delivery O2 Flow Rate FiO2 08/03/16 01:40 37.1 95 18 131/85 95 Room Air 08/02/16 21:58 1.00 Intake and Output 08/02/16 08/02/16 08/03/16 Cumulative From/Thru 15:00 23:00 07:00 07/31/16 09:15 - 08/02/16 16:33 Intake Total 2977 ml 16420 ml Output Total 2300 ml 36835 ml Balance 677 ml -819 ml Intake Oral 2200 ml 3910 ml IV Total 777 ml 7271 ml Output Urine Total 2300 ml 94535 ml # Voids 5 Exam General: NAD HEENT: NCAT Heart: RRR, no s3/s4 Lungs: CTA, no crackles or wheezes Abd: Soft, NT/ND, normal MSK: Good ROM in left shoulder, left hand not swollen, moving fingers ok. Vasc: 2+ radial pulse b/l neuro: No focal deficits, neg for altered sensation Psych : neg for anxiety IVs and Medications Medications Reviewed: Medications were reviewed in detail Lab and Diagnostics Laboratory Tests Test 08/03/16 05:40 08/03/16 13:15 White Blood Count 11.7th/mm3 (3.8-10.1) Red Blood Count 3.97mil/mm3 (4.40-5.80) Hemoglobin 12.5g/dL (13.8-17.2) Hematocrit 37.4% (41.0-50.0) Mean Corpuscular Volume 94.2fL (81-100) Mean Corpuscular Hemoglobin 31.5pg (27.0-35.0) Mean Corpuscular Hemoglobin Concent 33.4% (32.0-37.0) Red Cell Distribution Width 12.7% (12.3-15.4) Platelet Count 212bil/L (150-400) Sodium Level 142mEq/L (134-144) Potassium Level 4.5mEq/L (3.5-5.2) Chloride Level 105mEq/L (97-108) Carbon Dioxide Level 25mmol/L (18-29) Blood Urea Nitrogen 11mg/dL (6-20) Creatinine 1.02mg/dL (0.76-1.27) Estimat Glomerular Filtration Rate 95mL/min (>59) Glucose Level 106mg/dL (60-99) Calcium Level 8.7mg/dL (8.5-10.1) Vancomycin Level Trough 10.5mcg/mL Microbiology 07/31/16 Blood Culture - Preliminary, Resulted No growth at 2 days; culture examined... 07/31/16 Gram Stain - Final, Complete 07/31/16 Fluid Crystals - Final, Complete 08/01/16 MRSA (PCR) - Final, Complete 08/01/16 Gram Stain - Final, Resulted 08/01/16 Culture & Sensitivity - Preliminary, Resulted No growth to date 08/01/16 Anaerobic Culture, Resulted Pending Result Diagram: 08/02/16 0511 08/02/16 0615 X-Rays, CTs and MRIs X-ray of left elbow 07/31/16 IMPRESSION: No acute fractures or dislocations. Assessment & Plan Patient is a 26-year-old male with no significant past medical history. Patient came to the hospital complaining of left elbow pain, 6 out of 10, sharp , nonradiating, started yesterday, partially alleviated by pain medications, exacerbated by movements and palpitation, associated with swelling and decreased motion, fever, chills, nausea. Patient was diagnosed with septic left olecranon bursitis. It was aspirated in ED. He was started on IV and ceftriaxone and IV fluids. He is now POD #2 I&D of left elbow Elevated BG, fasting: Pre-diabetic -- A1C =5.7 -- Recommended Life style changes, PCP is requested to follow up. Sepsis secondary to olecranon bursitis, present on admission: Left elbow x-ray - personally reviewed- revealed no fractures identified - Continue with IV ceftriaxone, IV Vancomycin per ID - admission time blood cultures are NGTD, aspirate culture showed no crystals - Patient is status post I&D on 08/01. cultures so far are NGTD. (Gram stain aspirate showed rare polys) --oxycodone Q4HPRN 5 mg, ketorolac 15 mg Q6HPRN for pain --Enoxaparin SQ for DVT Prophylaxis --HIV test is ordered by ID: Follow the results --Encouraged incentive spirometry Fevers: Patient reports Overnight fevers: Resolved -- We will continue to monitor, although is aware -- We will order further blood cultures if that is enough concern Nausea: Resolved Allergies: continue home meds Insomnia: continue home meds Asthma: stable Disposition: Discharge to home in 1 day on PO clinda 300 mg QID for 7-10 days if his infection continues to resolve/improve. Orhto F/U : "Weightbearing: Nonweightbearing left elbow Follow-up plan: In 2 weeks at [facility] with PA for wound check and at [address] Farrar Pain Management:" Pain Evaluation: Adequate Pain Control VTE Prophylaxis: Sub-Q Heparin (Unfractionated), Other (Pt is ambulatory) Time spent 25 min Lesly Meeks DO August 03, 2016 06:01 Lesly Meeks DO August 03, 2016 06:01
--- NOTE | 2016-08-03 09:08 | PROG NOTE ---
[address] [address] PROGRESS NOTE PATIENT: ANTONINO HUNT : 1990 MR#: [id number] ADMIT: 07/31/2016 JOB ID: [id number] DATE: 08/03/2016 INFECTIOUS DISEASE FOLLOW UP NOTE: REASON FOR FOLLOWUP: Septic olecranon bursitis, left side. INTERVAL HISTORY: Overnight, the patient reports minimal left elbow pain and he has had improved pain control. No fevers, no chills. No sweats. No cough, nausea or vomiting. PHYSICAL EXAMINATION: Reveals an afebrile gentleman, in no acute distress. Temperature 37.1. He has been afebrile now for almost two full days. Pulse 86, respiratory rate 17, blood pressure 115/64, saturating well on room air. He is in no acute distress. His lungs are . Cardiac tones without murmur. Abdomen benign. His left upper extremity is in a large dressing which the surgeon will be changing today. 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 LABORATORIES: Include a white count which is gradually decreasing, now 11,700. His creatinine 1.02. CRP was 13 yesterday. HIV pending. The aspirate of the fluid is negative at this point in terms of culture results and there have been two aspirates, one on the and another one during surgery on the . Both are negative. PCR of the nares negative. IMPRESSION: This is a young gentleman with uncomplicated past medical history except for just now diagnosed pre diabetes. He is admitted with a rapidly progressive left septic olecranon bursitis. We have no positive culture at this point though the likely organisms would be staph or strep RECOMMENDATIONS: 1. I would continue vanc and ceftriaxone. 2. We await the pending cultures. 3. The patient will probably be discharged on oral clindamycin if he has improved sufficiently over the next day or two. The dose there would be 300 4x daily for 7-10 days.
[2016-08-03 09:09] VITALS: PULSE 84
[2016-08-03] MEDS: cefTRIAXone Inj 2,000 MG in Dextrose 5% Minibag Plus 50 ML IV SCH (09:32)
[2016-08-03] MEDS: HYDROcodone-APAP 7.5-325 mg Tablet PO PRN ×2 (09:44→14:42)
[2016-08-03 10:11] VITALS: BP 112/66; PULSE 85; RESP 17; O2SAT 97
--- NOTE | 2016-08-03 11:14 | PCM.PNORTH ---
Subjective Date of Service: August 03, 2016 Visit Information: Reason for Visit Cellulitis,Bursitis Surgery/Surgery Date left elbow olecranon bursa I&D 08/01/2016 Post-Op Day # 2 Date of Admission: July 31, 2016 at 14:57 Hospital Day # Subjective Patient complains of incisional pain. He denies tingling, numbness or paresthesias. Postop General: No Shortness of Breath, No Chest Pain Pain Management: PO, IV Push Objective Exam Objective Patient is seen sitting up in bed. Vital Signs and I/O Vital Sign - Last Date Time Temp Pulse Resp B/P Pulse Ox O2 Delivery O2 Flow Rate FiO2 08/03/16 09:09 84 08/03/16 06:00 37.1 17 115/64 97 Room Air 08/02/16 21:58 1.00 Intake and Output 08/02/16 08/02/16 08/03/16 Cumulative From/Thru 15:00 23:00 07:00 07/31/16 09:15 - 08/03/16 06:22 Intake Total 2977 ml 1940 ml 69918 ml Output Total 2300 ml 4005 ml 26318 ml Balance 677 ml -2065 ml -2884 ml Intake Oral 2200 ml 720 ml 4630 ml IV Total 777 ml 1220 ml 8491 ml Output Urine Total 2300 ml 4005 ml 52508 ml # Voids 5 Lab & Micro Results Laboratory Tests Test 08/03/16 05:40 White Blood Count 11.7th/mm3 (3.8-10.1) Red Blood Count 3.97mil/mm3 (4.40-5.80) Hemoglobin 12.5g/dL (13.8-17.2) Hematocrit 37.4% (41.0-50.0) Mean Corpuscular Volume 94.2fL (81-100) Mean Corpuscular Hemoglobin 31.5pg (27.0-35.0) Mean Corpuscular Hemoglobin Concent 33.4% (32.0-37.0) Red Cell Distribution Width 12.7% (12.3-15.4) Platelet Count 212bil/L (150-400) Sodium Level 142mEq/L (134-144) Potassium Level 4.5mEq/L (3.5-5.2) Chloride Level 105mEq/L (97-108) Carbon Dioxide Level 25mmol/L (18-29) Blood Urea Nitrogen 11mg/dL (6-20) Creatinine 1.02mg/dL (0.76-1.27) Estimat Glomerular Filtration Rate 95mL/min (>59) Glucose Level 106mg/dL (60-99) Calcium Level 8.7mg/dL (8.5-10.1) Microbiology 07/31/16 Blood Culture - Preliminary, Resulted No growth at 2 days; culture examined... 07/31/16 Gram Stain - Final, Complete 07/31/16 Fluid Crystals - Final, Complete 08/01/16 MRSA (PCR) - Final, Complete 08/01/16 Gram Stain - Final, Resulted 08/01/16 Culture & Sensitivity - Preliminary, Resulted No growth to date 08/01/16 Anaerobic Culture, Resulted Pending Result Diagram: 08/03/16 0540 08/03/16 0540 General Appearance: Alert, Oriented X3, Cooperative, No Acute Distress Extremities: Distal Pulses Palpable Postop Sensory Motor: Distal Motor Intact, Movement in Fingers, NVI Distally SURGICAL WOUND : Wound Location/Description Left elbow: surgical dressing is removed. There is mild serous drainage dries on the dressing. No purulence seen. Wound packing is removed. There is no erythema present. Dressing is changed with fluffs, cast padding, long arm posterior splint and elastic bandages. Activity: Ambulating Independently Catheters: None Assessment & Plan Impression POD #1 status post Left elbow olecranon bursa I&D Problems: Plan Weightbearing: Nonweightbearing left elbow Wound care: Dressing is changed by PA today with pressure pad (fluffs), UE is immobilized with long arm splint. Wound cultures are pending. Gram stain show no organisms Patient is instructed to avoid leaning on the elbow, minimize use of the left UE. Discharge plan: Discharge home when medically stable on oral antibiotics We appreciate Dr. Meeks and Dr. Freedman medical care of this patient Discharge instructions: Leave dressing and splint in place. Rest arm on pillows Minimize use of left UE Follow-up plan: In 1 week at [facility] with JOSÉ LUIS for wound check and at [address] Farrar Pain Management: Oxycodone, toradol VTE Prophylaxis: Sub-Q Heparin (Unfractionated), Other (Pt is ambulatory) Resuscitation Status: CPR: Attempt Resuscitation Organ, Arely M PA-C August 03, 2016 11:14 Arely Vilchis PA-C August 03, 2016 11:14
--- NOTE | 2016-08-03 13:05 | NUR ---
Pain Pt c/t prefer toradol for pain management, reports that morphine and norco to not improve pain, but that oxycodone does help. At this time toradol and oxycodone are managing pain well.
[2016-08-03] MEDS ORDERED: Vancomycin Serum Trough XX ONE (13:30)
--- NOTE | 2016-08-03 16:21 | PCM.PHAPRO ---
Progress Left elbow pain VANCOMYCIN DOSING PER PHARMACY Labs: Scr 1.02 WBC 11.7 Trough on 08/03 @ 1330: 10.5 A: Vancomycin trough was drawn after only two doses (after restarting dose last night a few hours after the initial scheduled time) P: Will continue vancomycin 1250 mg IV q8h Will draw additional trough on 08/04 @ 1330 SCr have been ordered for the next two days and will be monitored, thank you Kizzy Eli PharmD August 03, 2016 16:21
[2016-08-03 18:53] VITALS: BP 119/71; PULSE 88; RESP 16; O2SAT 98
[2016-08-03 23:00] VITALS: BP 106/61; PULSE 84; RESP 17; O2SAT 98
[2016-08-04] MEDS: Heparin 5,000 Unit/mL Inj SUBQ SCH ×2 (00:50→08:54)
[2016-08-04 05:31] VITALS: PULSE 94
[2016-08-04] MEDS ORDERED: OXYC5TAB72 PO (05:36)
[2016-08-04] MEDS ORDERED: CLIN-78 PO (05:36)
[2016-08-04] MEDS ORDERED: POLY17PO6 PO (05:36)
[2016-08-04] MEDS ORDERED: LACT1CAP13 PO (05:38)
[2016-08-04] MEDS: Vancomycin Inj 1,250 MG in 0.9% Sodium Chloride 250 ML IV SCH (05:51)
[2016-08-04 06:04] VITALS: BP 125/80; PULSE 92; RESP 18; O2SAT 98
--- NOTE | 2016-08-04 06:06 | NUR ---
Shift note/pain Pain tolerance notably improved medicated w/oxy 5mg x1 the whole night comfortable otherwise uneventful
[2016-08-04 07:15] LABS: Mean Corpuscular Hemoglobin 30.7 pg (27.0-35.0); Mean Corpuscular Volume 92.7 fL (81-100)
[2016-08-04 08:00] VITALS: PULSE 87
[2016-08-04] MEDS: Vancomycin Dose per Pharmacist XX SCH (08:30)
[2016-08-04] MEDS: buPROPion SR 150 mg ER12 Tablet PO SCH (08:54)
[2016-08-04] MEDS: cefTRIAXone Inj 2,000 MG in Dextrose 5% Minibag Plus 50 ML IV SCH (08:56)
[2016-08-04 11:00] VITALS: BP 135/83; PULSE 94; RESP 14; O2SAT 93
--- NOTE | 2016-08-04 11:11 | PCM.PNORTH ---
Subjective Date of Service: Aug 04, 2016 Visit Information: Reason for Visit Cellulitis,Bursitis Surgery/Surgery Date Post-Op Day # 3 Date of Admission: July 31, 2016 at 14:57 Hospital Day # Subjective Patient states he is feeling a lot better and states his pain is well controlled. Denies numbness, tingling or increasing pain. Postop General: No Shortness of Breath, No Chest Pain Pain Management: PO, IV Push Objective Exam Objective Sitting up in bed, extremity elevated on a pillow. Vital Signs and I/O Vital Sign - Last Date Time Temp Pulse Resp B/P Pulse Ox O2 Delivery O2 Flow Rate FiO2 08/04/16 08:00 87 08/04/16 06:04 37.4 18 125/80 98 Room Air 08/02/16 21:58 1.00 Intake and Output 08/03/16 08/03/16 08/04/16 Cumulative From/Thru 15:00 23:00 07:00 07/31/16 09:15 - 08/04/16 06:05 Intake Total 1586 ml 1990 ml 18542 ml Output Total 1400 ml 3100 ml 20576 ml Balance 186 ml -1110 ml -3808 ml Intake Oral 1200 ml 960 ml 6790 ml IV Total 386 ml 1030 ml 9907 ml Output Urine Total 1400 ml 3100 ml 30055 ml # Voids 5 # Bowel Movements 1 1 Lab & Micro Results Laboratory Tests Test 08/03/16 13:15 08/04/16 06:30 08/04/16 07:00 Vancomycin Level Trough 10.5mcg/mL Sodium Level 141mEq/L (134-144) Potassium Level 4.5mEq/L (3.5-5.2) Chloride Level 100mEq/L (97-108) Carbon Dioxide Level 22mmol/L (18-29) Blood Urea Nitrogen 13mg/dL (6-20) Creatinine 1.13mg/dL (0.76-1.27) Estimat Glomerular Filtration Rate 84mL/min (>59) Glucose Level 102mg/dL (60-99) Calcium Level 9.5mg/dL (8.5-10.1) White Blood Count 9.6th/mm3 (3.8-10.1) Red Blood Count 4.37mil/mm3 (4.40-5.80) Hemoglobin 13.4g/dL (13.8-17.2) Hematocrit 40.5% (41.0-50.0) Mean Corpuscular Volume 92.7fL (81-100) Mean Corpuscular Hemoglobin 30.7pg (27.0-35.0) Mean Corpuscular Hemoglobin Concent 33.1% (32.0-37.0) Red Cell Distribution Width 12.5% (12.3-15.4) Platelet Count 273bil/L (150-400) Microbiology 07/31/16 Blood Culture - Preliminary, Resulted No growth at 2 days; culture examined... 07/31/16 Gram Stain - Final, Complete 07/31/16 Fluid Crystals - Final, Complete 08/01/16 MRSA (PCR) - Final, Complete 08/01/16 Gram Stain - Final, Resulted 08/01/16 Culture & Sensitivity - Preliminary, Resulted 08/01/16 Anaerobic Culture - Preliminary, Resulted Result Diagram: 08/04/16 0700 08/04/16 0630 General Appearance: Alert, Oriented X3, Cooperative, No Acute Distress Extremities: Distal Pulses Palpable, Warm, No Compartment Syndrom Noted Postop Sensory Motor: Distal Motor Intact, Movement in Fingers, Distal Sensation Intact SURGICAL WOUND : Wound Location/Description Splint c/d/i Incision General Appearance: No Direct Observation Activity: Ambulating Independently Catheters: None Assessment & Plan Impression POD#3 left olecranon bursa I&D Problems: Plan Weightbearing: Nonweightbearing left elbow Wound care: UE is immobilized with long arm splint and splint and dressing shoulder remain intact. Wound cultures are pending. Gram stain show no organisms Patient is instructed to avoid leaning on the elbow, minimize use of the left UE. Discharge plan: Discharge home when medically stable on oral antibiotics - awaiting medical clearance to discharge however, from an ortho perspective, stable to discharge today. I have placed a prescription for Percocet 5/325 in patient's charge for pain management. I will defer to hospitalist service for antibiotic and DVT prophylaxis. We appreciate Dr. Meeks and Dr. Freedman medical care of this patient Discharge instructions: Leave dressing and splint in place. Rest arm on pillows Minimize use of left UE Follow-up plan: In 1 week at [facility] with JOSÉ LUIS for wound check and at [address] Farrar VTE Prophylaxis: Sub-Q Heparin (Unfractionated), Other (Pt is ambulatory) Resuscitation Status: CPR: Attempt Resuscitation Christa Olivares PA-C Aug 04, 2016 11:11
--- NOTE | 2016-08-04 11:17 | PROG NOTE ---
[address] [address] PROGRESS NOTE PATIENT: ANTONINO HUNT : 1990 MR#: [id number] ADMIT: 07/31/2016 JOB ID: [id number] DATE: 08/04/2016 REASON FOR FOLLOWUP: Left olecranon bursitis, probably septic. INTERVAL HISTORY: Overnight, the patient's original dressing was removed and a new large dressing was placed by Orthopedics. The patient reports that the wound looked great, and when the dressing was briefly removed, there was no more pain, tenderness, or swelling. He is now ready for discharge and denies fevers, chills, sweats, GI, or pulmonary symptoms. PHYSICAL EXAMINATION: Reveals an afebrile gentleman in no acute distress. Temperature 37.4, pulse 87, respiratory rate 18. Blood pressure 125/80. Saturating well on room air. He is in no apparent distress. Eyes without conjunctivitis. Oral cavity negative. Lungs are clear. Cardiac tones: Regular rate and rhythm. Abdomen benign. His left elbow is again dressed in a bulky dressing I did not remove. LABORATORY DATA: Labs include a white count which is now normal at 9600. Creatinine 1.13. CRP was 13 on the 30th, not repeated. HIV negative. All cultures and crystal studies are negative, including cultures from the olecranon as well as blood cultures. IMPRESSION: This patient had what appeared to be a septic olecranon bursitis. Our cultures have proven to be negative, but the most likely organisms would clearly be Staphylococcus or Streptococcus. RECOMMENDATIONS: 1. I think the patient can be discharged today. 2. I would send him out on clindamycin 300 q.i.d. for 10 days. 3. I gave the patient my office number, and he will call me if he has any problems. I do not think he really needs to followup with me necessarily if he is doing well.
--- NOTE | 2016-08-04 11:29 | PCM.DC.MED ---
Discharge Summary Date of Service Aug 04, 2016 Dates of Hospitalization Date of Hospital Admission July 31, 2016 at 14:57 Date of Discharge: Aug 04, 2016 Providers: Admitting Physician: Jed Turcios MD Primary Care Physician: Eduardo Sharp MD Attending Physician: Rajesh Farrar MD Diagnosis at Time of Discharge Diagnosis at Time of Discharge Septc L Olecranon Bursitis, Pre-Diabetes Consultations Orthopedic Surgery, ID, PT/OT Procedures XRay, CTs & MRIs X-ray of left elbow 07/31/16 IMPRESSION: No acute fractures or dislocations. Brief History Patient is a 26-year-old male with past medical history of Asthma came to the hospital complaining of left elbow pain, 6 out of 10, sharp, nonradiating, started yesterday, partially alleviated by pain medications, exacerbated by movements and palpitation, associated with swelling and decreased motion, fever , chills, nausea. Patient was diagnosed with septic left olecranon bursitis. ED physician asked medicine to admit the patient to the hospital for IV fluids, IV antibiotics, pain management. In emergency department patient received IV ceftriaxone, IV fluids. He has leukocytosis and fever and tachycardia. Hospital Course Patient is a 26-year-old male with no significant past medical history. Patient came to the hospital complaining of left elbow pain, 6 out of 10, sharp , nonradiating, started yesterday, partially alleviated by pain medications, exacerbated by movements and palpitation, associated with swelling and decreased motion, fever, chills, nausea. Patient was diagnosed with septic left olecranon bursitis. It was aspirated in ED. He was started on IV and ceftriaxone and IV fluids. He is now POD #2 I&D of left elbow Mild Upper left arm edema: Patient was doing better on the day of discharge , is ambulating in the hallways tolerating normal diet . Range of motion in the affected arm is much improved. Patient has complained of minor swelling in his upper arm soon following his discharge. This area is about his elbow and the bicep area posteriorly, it appears that the erythema is not remarkable though we were unable to see it through the dressings. He did not have major tenderness to palpation. This slight swelling is thought to be from the tight dressings compressing the arm proximal to the dressing. As we were instructed not to remove his dressings by orthopedic surgery , Orthopedic surgery were requested to remove the dressings and examined to the arm, they have done this and demarcated the area with a pen, patient was discharged. Elevated BG, fasting: Pre-diabetic -- A1C =5.7 -- Recommended Life style changes, PCP is requested to follow up. Sepsis secondary to olecranon bursitis, present on admission: Left elbow x-ray - personally reviewed- revealed no fractures identified - Patient was treated with ceftriaxone and vancomycin IV antibiotics - admission time blood cultures are NGTD, aspirate culture showed no crystals - Patient is status post I&D on 08/01. cultures so far are NGTD. (Gram stain aspirate showed rare polys) --oxycodone Q4HPRN 5 mg, ketorolac 15 mg Q6HPRN for pain --Enoxaparin SQ for DVT Prophylaxis --HIV test is ordered by ID: Follow the results: Negative --Encouraged incentive spirometry -- Patient is discharged at 100 mg 4 times a day clindamycin, acidophilus. Fevers: Patient reports Overnight fevers: Resolved -- We will continue to monitor, although is aware -- We will order further blood cultures if that is enough concern Nausea: Resolved Allergies: continue home meds Insomnia: continue home meds Asthma: stable Disposition: Discharge to home in 1 day on PO clinda 300 mg QID for 7-10 days if his infection continues to resolve/improve. Orhto F/U : "Weightbearing: Nonweightbearing left elbow Follow-up plan: In 2 weeks at [facility] with JOSÉ LUIS for wound check and at [address] Farrar Pain Management: Exam Vital Signs (Last) Date Time Temp Pulse Resp B/P Pulse Ox O2 Delivery O2 Flow Rate FiO2 08/04/16 08:00 87 08/04/16 06:04 37.4 18 125/80 98 Room Air 08/02/16 21:58 1.00 Exam General: NAD HEENT: NCAT Heart: RRR, no s3/s4 Lungs: CTA, no crackles or wheezes Abd: Soft, NT/ND, normal MSK: Good ROM in left shoulder, left hand not swollen, moving fingers ok. Vasc: 2+ radial pulse b/l neuro: No focal deficits, neg for altered sensation Psych : neg for anxiety Test 07/31/16 12:05 07/31/16 19:30 08/02/16 05:11 08/02/16 06:15 Neutrophils (%) (Auto) 81.2% (40-74) Lymphocytes (%) (Auto) 9.7% (14-46) Monocytes (%) (Auto) 8.5% (4-12) Eosinophils (%) (Auto) 0.2% (0-5) Basophils (%) (Auto) 0.2% (0-3) Lactic Acid Level 1.4mmol/L (0.4-2.0) Total Bilirubin 0.7mg/dL (0.0-1.2) Direct Bilirubin < 0.2mg/dL (0.0-0.3) Aspartate Amino Transf (AST/SGOT) 26U/L (0-50) Alanine Aminotransferase (ALT/SGPT) 83U/L (0-44) Alkaline Phosphatase 57U/L (25-150) Total Protein 7.1g/dL (6.4-8.4) Albumin 4.0g/dL (3.4-5.0) Hold Bishop Top Tube Received (Received) Erythrocyte Sedimentation Rate 41mm/hr (0-15) Hemoglobin A1c 5.7% (4.8-5.6) C-Reactive Protein 13.2mg/dL (0.0-0.5) Test 08/03/16 05:40 08/03/16 13:15 08/04/16 06:30 08/04/16 07:00 HIV (1&2) Ag and Ab, 4th Generation Non reactive (Non Reactive) Vancomycin Level Trough 10.5mcg/mL Sodium Level 141mEq/L (134-144) Potassium Level 4.5mEq/L (3.5-5.2) Chloride Level 100mEq/L (97-108) Carbon Dioxide Level 22mmol/L (18-29) Blood Urea Nitrogen 13mg/dL (6-20) Creatinine 1.13mg/dL (0.76-1.27) Estimat Glomerular Filtration Rate 84mL/min (>59) Glucose Level 102mg/dL (60-99) Calcium Level 9.5mg/dL (8.5-10.1) White Blood Count 9.6th/mm3 (3.8-10.1) Red Blood Count 4.37mil/mm3 (4.40-5.80) Hemoglobin 13.4g/dL (13.8-17.2) Hematocrit 40.5% (41.0-50.0) Mean Corpuscular Volume 92.7fL (81-100) Mean Corpuscular Hemoglobin 30.7pg (27.0-35.0) Mean Corpuscular Hemoglobin Concent 33.1% (32.0-37.0) Red Cell Distribution Width 12.5% (12.3-15.4) Platelet Count 273bil/L (150-400) Discharge Medications Discharge Medications Ascorbic Acid (Vitamin C) 1,000 Mg Tab.chew 1,000 MG PO BID (Reported) Bupropion ER (Wellbutrin SR) 150 Mg Tablet.er 150 MG PO BID (Reported) Cetirizine HCl (24Hour Allergy) 10 Mg Tablet 10 MG PO HS (Reported) Clindamycin (Clindamycin) 300 Mg Capsule 300 MG PO QID Prescribed by: LESLY LAINEZ DO Lactobacillus Acidophilus (Acidophilus) 1 Each Capsule 1 EACH PO BIDWM Prescribed by: LESLY LAINEZ DO Melatonin (Melatonin) 10 Mg Tablet 10 MG PO HS (Reported) As needed Acetaminophen (Acetaminophen) 500 Mg Tablet 500-1,000 MG PO Q6H PRN PRN For Pain (Reported) Albuterol HFA (Proair HFA) 8.5 Gm Hfa.aer.ad 2 PUFFS INHALATION Q4H PRN PRN For Shortness of Breath (Reported) Ibuprofen (Ibuprofen) 200 Mg Capsule 200-400 MG PO BID PRN PRN For Pain ( Reported) Polyethylene Glycol 3350 (Miralax) 17 Gm Powd.pack 17 GM PO DAILY PRN PRN For Constipation Prescribed by: LESLY LAINEZ DO oxyCODONE (oxyCODONE) 5 Mg Tablet 5 MG PO Q4H PRN PRN For Moderate Pain Prescribed by: LESLY LAINEZ DO Additional med instructions Please take your pain meds, antibiotics as prescribed. Miralax to avoid constipation, acidophilus to avoid diarrhea Followup Plan Follow-up plan Follow-up plan: In 1 week at [facility] with PA for wound check and at [address] Farrar F/U with PCP in ten days Discharge Diet: Other (Low carb diet) Discharge Activity: Limited until seen by PCP Patient Instructions Weightbearing: Nonweightbearing left elbow Wound care: UE is immobilized with long arm splint and splint and dressing shoulder remain intact. Patient is instructed to avoid leaning on the elbow, minimize use of the left UE. Follow-up plan: In 1 week at [facility] with PA for wound check and at [address] Farrar F/U with PCP in ten days Time spent 35 minutes Lesly Lainez DO Aug 04, 2016 11:29
--- NOTE | 2016-08-04 11:29 | PCM.DIMED ---
Discharge Instructions Date of Service Aug 04, 2016 Dates of Hospitalization July 31, 2016 at 14:57 Discharge Diagnosis Discharge Diagnosis Septc L Olecranon Bursitis, Pre-Diabetes Medication Instructions Additional med instructions Please take your pain meds, antibiotics as prescribed. Miralax to avoid constipation, acidophilus to avoid diarrhea Diet Discharge Diet: Other (Low carb diet) Activity Discharge Activity: Limited until seen by PCP Call your provider Call your provider for: Fever or Chills, Shortness of breath, Bleeding, Chest pain, Vomitting, Excessive diarrhea, Weakness (unilateral), Other Patient Instructions Patient Instructions Weightbearing: Nonweightbearing left elbow Wound care: UE is immobilized with long arm splint and splint and dressing shoulder remain intact. Patient is instructed to avoid leaning on the elbow, minimize use of the left UE. Follow-up plan: In 1 week at [facility] with PA for wound check and at [address] Leni Perea with PCP in ten days Follow-up plan Follow-up plan: In 1 week at [facility] with PA for wound check and at [address] Leni Perea with PCP in ten days Lesly Meeks DO Aug 04, 2016 11:29
--- NOTE | 2016-08-04 12:28 | NUR ---
Social work note - Discharge Tyler Davalos is able to d/c home today with on POV. He is feeling better, will go home on PO abx. No other needs identified. Plan: Home with in POV. LINDA Stratton
[2016-08-04] MEDS ORDERED: Vancomycin Serum Trough XX ONE (13:30)
[2016-08-04 15:20] VITALS: BP 125/79; PULSE 95; RESP 20; O2SAT 95
--- NOTE | 2016-08-04 16:18 | NUR ---
Discharge Discharge orders and instructions reviewed with pt. at 1200, soon after MDs had cleared pt. for discharge. He was getting dressed to leave after IV and Tele had been DC'd, and his noticed some redness on the posterior part of the L arm. notified and Surgeon JOSÉ LUIS present at 1530 to assess. Site mapped out with marker, and f/u appointment made on monday to further monitor. Per JOSÉ LUIS, pt. ok for discharge. All belongings, scripts and instructions with pt. No questions or concerns at this time. Pt. and family left unit at 1545, walking, in stable condition.
== END 2016-08-04 15:54 | disposition home or self-care (01) | DRG 872 ==
LOC: SED 09:08 → MOC 14:57
PROVIDERS: ADMIT Internal Medicine; ATTEND Internal Medicine
PROC: 0H9EXZX Drainage of Left Lower Arm Skin, External Approach, Diagnostic (ICD-10-PCS; principal; 2016-07-31)
PROC: 0R9M0ZX Drainage of Left Elbow Joint, Open Approach, Diagnostic (ICD-10-PCS; 2016-08-01)
DX: A41.9 Sepsis, unspecified organism (principal); L03.114 Cellulitis of left upper limb; M71.122 Other infective bursitis, left elbow; J45.909 Unspecified asthma, uncomplicated; G47.00 Insomnia, unspecified